=== PATIENT | female | born 1940 | race Caucasian/White ===

== ENCOUNTER 2024-03-24 17:34 | Emergency (ER) | payer MEDICARE, SELFPAY ==
[2024-03-24 17:34] VITALS: O2SAT 95
[2024-03-24 17:35] VITALS: BP 137/79; PULSE 101; RESP 18; TEMP 36.4; O2SAT 87; O2SAT 93; BMI 32.9
--- NOTE | 2024-03-24 19:00 | RAD_ITS ---
STUDY: X-RAY CHEST REASON FOR EXAM: Female, 83 years old. Pain TECHNIQUE: Frontal and lateral views of the chest. COMPARISON: None. FINDINGS: The lungs are clear and expanded. There is no demonstrated pleural abnormality. Cardiomegaly. Normal mediastinum and nathalie. Normal visualized pulmonary arteries. Normal visualized aortic arch and descending thoracic aorta. Severe kyphosis. Diffuse demineralization. Normal visualized ribs, clavicles, and shoulders. There is no demonstrated abnormality of the visualized soft tissue structures of the upper abdomen. RAD/Chest PA and Lateral IMPRESSION: Severe kyphosis. Cardiomegaly. Electronically Signed: Taz Tavarez MD at 19:28 EDT ,
[2024-03-24 19:42] VITALS: PULSE 98; RESP 20; O2SAT 95
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
[2024-03-24 21:00] VITALS: PULSE 98; RESP 16; O2SAT 92
[2024-03-24] MEDS: Ondansetron ODT 4 MG Tablet PO (22:09)
[2024-03-24] MEDS: Morphine 4 MG/ML Syringe IM (22:09)
[2024-03-24 23:00] VITALS: BP 133/72; PULSE 77; RESP 16; O2SAT 93
--- NOTE | 2024-03-24 23:22 | ED.RN ---
PATIENT CAME IN ON O2 FROM [place]. SHE DOES NOT NORMALLY WEAR O2 AT HOME. THIS NURSE ATTEMPTED TO WEANHER OFF AND HER SATS DROPPED TO 87%. DR. COOK NOTIFIED. RESPIRATORY CALLED FOR BREATHING TREATMENT.
[2024-03-24] MEDS: Ipratropium/Albuterol Sulfate 3 ML AMPUL.NEB INHALATION ×2 (23:23→23:27)
[2024-03-24 23:29] VITALS: PULSE 110; RESP 16
[2024-03-25] VITALS: BP 133/72; PULSE 110; RESP 16; TEMP 36.4; O2SAT 93
== END 2024-03-25 | disposition home or self-care (01) ==
PROVIDERS: Emergency Provider Emergency Medicine; Visit Provider Emergency Medicine
DX: S20.20XA Contusion of thorax, unspecified, initial encounter (principal); V43.62XA Car passenger injured in collision with other type car in traffic accident, initial encounter; W22.10XA Striking against or struck by unspecified automobile airbag, initial encounter; Y92.410 Unspecified street and highway as the place of occurrence of the external cause; I10 Essential (primary) hypertension; Z86.73 Personal history of transient ischemic attack (TIA), and cerebral infarction without residual deficits
CPT/HCPCS: 71046; 94640; 96372; 99283; J2405